=== PATIENT | male | born 1945 | race Caucasian/White ===

== ENCOUNTER → 2021-12-08 | Outpatient (CLI) | payer MEDICARE | LOC: KOH-I 15:40 | DX: R07.9 Chest pain, unspecified (principal); J98.11 Atelectasis | CPT/HCPCS: 71046 ==

== ENCOUNTER → 2021-12-30 | Outpatient (CLI) | payer MEDICARE | LOC: NM 12:39 | DX: R07.9 Chest pain, unspecified (principal); I25.9 Chronic ischemic heart disease, unspecified; R00.1 Bradycardia, unspecified | CPT/HCPCS: 78452; 93017; A9502; J2785 ==

== ENCOUNTER → 2022-01-15 | Outpatient (CLI) | payer MEDICARE ==
[2022-01-15 13:36] LABS: RED BLOOD COUNT 4.22 M/UL (4.20-5.50); WHITE BLOOD COUNT 6.8 K/UL (4.5-11.0)
== END ==
LOC: LAB 13:03
PROVIDERS: Internal Medicine Interventional Cardiology
DX: Z01.818 Encounter for other preprocedural examination (principal); R94.31 Abnormal electrocardiogram [ECG] [EKG]; I45.2 Bifascicular block; Z86.59 Personal history of other mental and behavioral disorders; Z86.39 Personal history of other endocrine, nutritional and metabolic disease; I10 Essential (primary) hypertension
CPT/HCPCS: 36415; 80048; 85025; 85610; 85730; 93005

== ENCOUNTER → 2022-01-26 | Outpatient (CLI) | payer MEDICARE ==
[~2022-01-26] MED LIST: ASPIRIN 325MG325 MG PO; ATORVASTATIN CA40 MG PO; FISH OIL 1,0001 EAC1 PO; ISOSORBIDE MONO20 MG PO; METOPROLOL TAR100 MG PO; VITAMIN C500 M4 PO; ZOLOFT100 MG PO
== END ==
LOC: CATH 06:26
DX: I25.118 Atherosclerotic heart disease of native coronary artery with other forms of angina pectoris (principal); I10 Essential (primary) hypertension; E78.5 Hyperlipidemia, unspecified
CPT/HCPCS: 93571; 99152; 99153; C1769; C1887; C1894; J0153; J0360; J1644; J2250; J3010; Q9965; Q9967